=== PATIENT | male | born 1960 | race Hispanic/Latino ===

== ENCOUNTER 2017-11-14 09:06 | Inpatient (IN) | payer SELFPAY ==
[~2017-11-14] VITALS: Ht 175.3 cm; Wt 92.1 kg
[~2017-11-14 09:06] MED LIST: CEPHALEXIN500 MG OR; LORTAB5 PO
[2017-11-14] MEDS ORDERED: KEFLEX500 MG PO (09:22)
[2017-11-14] MEDS ORDERED: BACTRIM DS1 TAB PO (09:22)
[2017-11-14 09:55] LABS: HEMATOCRIT 44.1 % (39.0-50.0); HEMOGLOBIN 15.3 g/dl (14.0-18.0); IMMATURE GRANULOCYTES 0.7 % (0.0-1.0); MEAN CELL VOLUME 86.3 fL CALC (80.0-100.0); MEAN CORPUSCULAR HGB 29.9 pG CALC (26.0-32.0); MEAN CORPUSCULAR HGB CONC 34.7 g/L CALC (32.0-36.0); NEUT# 10.83 thou/uL (1.82-7.42); RED BLOOD COUNT 5.11 mill/uL (4.70-6.10); RED CELL DISTRI WIDTH 12.2 % (11.5-15.5)
[2017-11-14 10:11] LABS: ALBUMIN 4.1 g/dL (3.2-5.0); ALKALINE PHOSPHATASE 46 u/l (38-126); ANION GAP 20 (6-22 (CALC)); BILIRUBIN, TOTAL 1.1 mg/dL (0.0-1.4); BUN 11 mg/dL (9-20); BUN/CREATININE RATIO 12 (12-20 (CALC)); CARBON DIOXIDE 22 mmol/l (22-30); CHLORIDE 103 mmol/l (95-108); CREATININE 0.9 mg/dL (0.7-1.3); GFR > 60 ML/MIN (>=60 (CALC)); GFR FOR AFR.AMER. > 60 ML/MIN (>=60 (CALC)); POTASSIUM 4.6 mmol/l (3.5-5.1); SGOT/AST 10 u/l (17-59); SGPT/ALT 33 u/l (21-72); SODIUM 141 mmol/l (137-146); TOTAL PROTEIN 7.1 g/dL (6.3-8.2)
[2017-11-14] MEDS ORDERED: BLOOD PRESSURE (11:09)
[2017-11-14 12:30] VITALS: BP 137/90
[2017-11-14 19:54] VITALS: BP 133/81
[2017-11-14 22:00] VITALS: BP 127/81
[2017-11-15 00:59] VITALS: BP 120/89
[2017-11-15 03:42] VITALS: BP 98/68
[2017-11-15 05:54] LABS: HEMATOCRIT 39.1 % (39.0-50.0); HEMOGLOBIN 13.4 g/dl (14.0-18.0); IMMATURE GRANULOCYTES 0.5 % (0.0-1.0); MEAN CELL VOLUME 88.9 fL CALC (80.0-100.0); MEAN CORPUSCULAR HGB 30.5 pG CALC (26.0-32.0); MEAN CORPUSCULAR HGB CONC 34.3 g/L CALC (32.0-36.0); NEUT# 6.91 thou/uL (1.82-7.42); RED BLOOD COUNT 4.4 mill/uL (4.70-6.10); RED CELL DISTRI WIDTH 12.1 % (11.5-15.5)
[2017-11-15 08:07] VITALS: BP 127/84
[2017-11-15 12:43] VITALS: BP 139/89
[2017-11-15 16:51] VITALS: BP 121/78
[2017-11-15 19:25] VITALS: BP 123/80
[2017-11-16 01:13] VITALS: BP 131/88
[2017-11-16 04:30] VITALS: BP 120/79
[2017-11-16 09:25] VITALS: BP 148/93
[2017-11-16 11:05] LABS: ANION GAP 16 (6-22 (CALC)); BUN 7 mg/dL (9-20); BUN/CREATININE RATIO 10 (12-20 (CALC)); CARBON DIOXIDE 23 mmol/l (22-30); CHLORIDE 106 mmol/l (95-108); CREATININE 0.7 mg/dL (0.7-1.3); GFR > 60 ML/MIN (>=60 (CALC)); GFR FOR AFR.AMER. > 60 ML/MIN (>=60 (CALC)); POTASSIUM 4.1 mmol/l (3.5-5.1); SODIUM 141 mmol/l (137-146)
[2017-11-16 11:24] LABS: HEMATOCRIT 43.6 % (39.0-50.0); HEMOGLOBIN 14.9 g/dl (14.0-18.0); IMMATURE GRANULOCYTES 1.3 % (0.0-1.0); MEAN CORPUSCULAR HGB 29.7 pG CALC (26.0-32.0); MEAN CORPUSCULAR HGB CONC 34.2 g/L CALC (32.0-36.0); NEUT# 3.58 thou/uL (1.82-7.42); RED BLOOD COUNT 5.01 mill/uL (4.70-6.10); RED CELL DISTRI WIDTH 11.9 % (11.5-15.5)
[2017-11-16 11:40] VITALS: BP 137/96
[2017-11-16 15:35] VITALS: BP 126/88
[2017-11-16 19:45] VITALS: BP 133/91
[2017-11-17 00:20] VITALS: BP 120/79
[2017-11-17 04:45] VITALS: BP 128/85
[2017-11-17 08:25] VITALS: BP 132/94
[2017-11-17 08:26] VITALS: BP 132/94
[2017-11-17] MEDS ORDERED: AUGMENTIN875TAB PO (11:17)
[2017-11-17] MEDS ORDERED: OXYCODONE/ACETA1 TA8 PO (11:20)
== END 2017-11-17 12:33 | disposition home or self-care (01) | DRG 854 ==
LOC: ED 09:06 → ED-I 10:57 → ED 11:08 → MS2 11:09 → ED-I 11:37 → ED 11:37 → MS2 11-17 12:33
PROVIDERS: Emergency Medicine; Nurse Practitioner; Surgery; ADMIT Internal Medicine; ATTEND Internal Medicine
PROC: 0D9P0ZZ Drainage of Rectum, Open Approach (ICD-10-PCS; principal; 2017-11-14)
DX: A41.9 Sepsis, unspecified organism (principal); K61.1 Rectal abscess; I10 Essential (primary) hypertension; B96.20 Unspecified Escherichia coli [E. coli] as the cause of diseases classified elsewhere
CPT/HCPCS: J3370

== ENCOUNTER 2019-11-26 15:20 | Emergency (ER) | payer SELFPAY ==
[~2019-11-26 15:20] MED LIST changes: +AUGMENTIN875TAB PO; +BACTRIM DS1 TAB PO; +BLOOD PRESSURE; +KEFLEX500 MG PO; +OXYCODONE/ACETA1 TA8 PO
[2019-11-26 17:08] LABS: HEMOGLOBIN 16.1 g/dl (14.0-18.0); IMMATURE GRANULOCYTES 0.2 % (0.0-5.0); MEAN CELL VOLUME 84.1 fL CALC (80.0-100.0); MEAN CORPUSCULAR HGB 29.4 pG CALC (26.0-32.0); NEUT# 4.28 thou/uL (1.82-7.42); RED BLOOD COUNT 5.47 mill/uL (4.70-6.10); RED CELL DISTRI WIDTH 12.2 % (11.5-15.5)
[2019-11-26 17:22] LABS: ALBUMIN 4.9 g/dL (3.2-5.0); ALKALINE PHOSPHATASE 37 u/l (38-126); ANION GAP 14 (6-22 (CALC)); BILIRUBIN, TOTAL 0.9 mg/dL (0.0-1.4); BUN 17 mg/dL (9-20); BUN/CREATININE RATIO 20 (12-20 (CALC)); CARBON DIOXIDE 26 mmol/l (22-30); CHLORIDE 99 mmol/l (95-108); CREATININE 0.8 mg/dL (0.7-1.3); GFR > 60 ML/MIN (>=60 (CALC)); GFR FOR AFR.AMER. > 60 ML/MIN (>=60 (CALC)); POTASSIUM 3.8 mmol/l (3.5-5.1); SODIUM 135 mmol/l (137-146); TOTAL PROTEIN 8.1 g/dL (6.3-8.2)
[2019-11-26 17:24] LABS: INTERNATIONAL NORMALIZED RATIO 1.1 RATIO (0.7-1.3); PROTHROMBIN TIME 11.1 SECONDS (9.0-12.5)
[2019-11-26 17:26] LABS: SGOT/AST 25 u/l (17-59)
[2019-11-26 20:30] VITALS: BP 110/72
== END 2019-11-26 20:30 | disposition home or self-care (01) | DRG 149 ==
LOC: ED 15:20
PROVIDERS: Family Medicine
DX: R42 Dizziness and giddiness (principal); I10 Essential (primary) hypertension
CPT/HCPCS: Q9967